=== PATIENT | female | born 1995 | race Caucasian/White ===

== ENCOUNTER 2023-09-04 14:39 | Emergency (ER) | payer OTHER ==
[~2023-09-04] VITALS: Ht 167.6 cm; Wt 83.5 kg
[2023-09-04 15:04] VITALS: BP 155/53; PULSE 63; RESP 20; TEMP 98.1; O2SAT 98
[2023-09-04] MEDS ORDERED: AMOX1TAB8 PO (17:11)
[2023-09-04] MEDS ORDERED: OFLO10SO16 LEFT EAR (17:11)
[2023-09-04] MEDS ORDERED: PROM118S5 PO (17:11)
[2023-09-04 17:17] VITALS: BP 155/53; PULSE 63; RESP 20; TEMP 98.1; O2SAT 98
== END 2023-09-04 17:17 | disposition home or self-care (01) ==
LOC: MED 14:39
DX: H66.92 Otitis media, unspecified, left ear (principal); J06.9 Acute upper respiratory infection, unspecified; Z79.899 Other long term (current) drug therapy
CPT/HCPCS: 99283